=== PATIENT | female | born 1975 | race Caucasian/White ===

== ENCOUNTER 2017-12-07 21:07 | Emergency (ER) | payer OTHER, SELFPAY ==
[2017-12-07 21:15] VITALS: BP 152/96; PULSE 93; RESP 16; TEMP 37; O2SAT 100; BMI 22.3
== END 2017-12-07 22:50 | disposition left against medical advice (07) ==
LOC: ED 21:39
DX: H53.9 Unspecified visual disturbance (principal)
CPT/HCPCS: 99281; 99282

== ENCOUNTER 2018-05-23 19:44 | Emergency (ER) | payer OTHER, SELFPAY ==
[2018-05-23 19:50] VITALS: BP 155/91; PULSE 104; RESP 15; TEMP 37.4; O2SAT 100; BMI 22.3
[2018-05-23 20:18] LABS: Bacteria Urine Few (2-10); Culture Indicated Urine Cult Not Indicated; RBC Urine 10-30/HPF (0-5/HPF); Squamous Epithelial Cell Urine None Seen; WBC Urine 0-1/HPF (0-5/HPF)
[2018-05-23] MEDS: KETOROLAC 60 MG/2 ML VIAL 30 MG IV (20:48)
--- NOTE | 2018-05-23 20:51 | ED.ABDPAIN ---
HPI - Abdominal Pain <Mary Nathan PA-C - Last Filed: 05/24/18 12:05> General Chief Complaint: Abdominal Pain Stated Complaint: Abd/flank pain R side Time Seen by Provider: 05/23/18 20:17 Source: patient Mode of arrival: ambulatory Limitations: no limitations History of Present Illness HPI narrative: This generally healthy 42-year-old female comes to ED due to right flank pain abrupt onset this afternoon. She states that she was in [place] this week for vacation and feeling fine until she developed crampy and stabbing pain in her right flank area. She states that she had some nausea on the flight home but no vomiting. Not feeling nauseated now. She states that she has felt warm but does not think she had a fever. She states that she does not have dysuria. She has not had hematuria. She states this pain is not quite like her previous kidney stone 6 years ago but location is similar. She states that she has history of chronic bladder spasm but that has been well controlled and this does not feel similar. She does not feel like the pain is in her abdomen or pelvis. She denies any diarrhea. No recent illness or known exposures. She notes that she has a history of chronic tachycardia, resting heart rate averages about 109. She has had previous cardiology workup for this and found to be benign Related Data Previous Rx's Medication Instructions Recorded oxycodone-acetaminophen [Percocet] 1 tab PO Q4-6H PRN #8 tab 05/23/18 tamsulosin 0.4 mg PO DAILY #5 cap 05/23/18 Review of Systems <Mary Nathan PA-C - Last Filed: 05/24/18 12:05> Review of Systems ROS Unobtainable: All systems reviewed & are unremarkable except as noted in HPI and below PFSH <Mary Nathan PA-C - Last Filed: 05/24/18 12:05> Medical History Chronic nonspecific cystitis (Chronic) Ovarian cyst (Chronic) Recurrent UTI (Chronic) Tachycardia (Chronic) History of kidney stones (Resolved) Surgical History History of tonsillectomy (Resolved) Family History Father Kidney stones Social History Smoking Status: Never smoker Family History Father Kidney stones Social History Smoking Status: Never smoker Exam <Mary Nathan PA-C - Last Filed: 05/24/18 12:05> Narrative Exam Narrative: GENERAL APPEARANCE: Patient sitting comfortably, in no distress. HEENT: PERRL, EOMI, no scleral icterus NECK: Supple LUNGS: Clear to auscultation bilaterally. HEART: Rate and rhythm regular, rapid, normal S1 and S2, no S3 or S4. ABDOMEN: Soft, nondistended, bowel sounds present x 4 quadrants, no masses palpable, no hepatosplenomegaly. No CVAT, but there is localized tenderness inferior to this along the right lateral flank without guarding or rebound EXTREMITIES: No edema, no cyanosis DERMATOLOGIC: No jaundice or exanthem NEUROLOGIC: Alert and oriented with normal speech and coordination Initial Vital Signs Initial Vital Signs: Vital Signs Temperature 99.3 F 05/23/18 19:50 Pulse Rate 104 H 05/23/18 19:50 Respiratory Rate 15 05/23/18 19:50 Blood Pressure 155/91 H 05/23/18 19:50 Pulse Oximetry 100 05/23/18 19:50 <Danita Garrett DO - Last Filed: 05/26/18 07:45> Initial Vital Signs Initial Vital Signs: Vital Signs Temperature 99.3 F 05/23/18 19:50 Pulse Rate 104 H 05/23/18 19:50 Respiratory Rate 15 05/23/18 19:50 Blood Pressure 155/91 H 05/23/18 19:50 Pulse Oximetry 100 05/23/18 19:50 Course <Mary Nathan PA-C - Last Filed: 05/24/18 12:05> Orders Ordered: Discontinued Medications Sodium Chloride (Normal Saline 0.9%) 1,000 mls @ 1,000 mls/hr IV BOLUS ONE Stop: 05/23/18 22:02 Last Infusion: 05/23/18 22:45 Dose: 0 mls/hr Admin: 05/23/18 21:34 Dose: 1,000 mls/hr Ketorolac Tromethamine (Toradol) 30 mg IV NOW ONE Stop: 05/23/18 20:18 Last Admin: 05/23/18 20:48 Dose: 30 mg Ondansetron HCl (Zofran Odt Prepack) 1 bottle MISC SEEINSTR ONE Stop: 05/23/18 23:00 Last Admin: 05/23/18 23:19 Dose: 1 bottle Oxycodone/Acetaminophen (Endocet 5/325 Prepack) 1 bottle MISC SEEINSTR ONE Stop: 05/23/18 23:00 Last Admin: 05/23/18 23:19 Dose: 1 bottle Tamsulosin HCl (Flomax) 0.4 mg PO NOW ONE Stop: 05/23/18 22:54 Last Admin: 05/23/18 23:19 Dose: 0.4 mg Vital Signs - 8 hr 05/23/18 19:50 05/23/18 22:23 Temperature 99.3 F Pulse Rate 104 H 98 H Respiratory Rate 15 15 Blood Pressure 155/91 H Blood Pressure [Right Arm] 132/80 Pulse Oximetry 100 100 <Danita Garrett DO - Last Filed: 05/26/18 07:45> Orders Ordered: Discontinued Medications Sodium Chloride (Normal Saline 0.9%) 1,000 mls @ 1,000 mls/hr IV BOLUS ONE Stop: 05/23/18 22:02 Last Infusion: 05/23/18 22:45 Dose: 0 mls/hr Admin: 05/23/18 21:34 Dose: 1,000 mls/hr Ketorolac Tromethamine (Toradol) 30 mg IV NOW ONE Stop: 05/23/18 20:18 Last Admin: 05/23/18 20:48 Dose: 30 mg Ondansetron HCl (Zofran Odt Prepack) 1 bottle MISC SEEINSTR ONE Stop: 05/23/18 23:00 Last Admin: 05/23/18 23:19 Dose: 1 bottle Oxycodone/Acetaminophen (Endocet 5/325 Prepack) 1 bottle MISC SEEINSTR ONE Stop: 05/23/18 23:00 Last Admin: 05/23/18 23:19 Dose: 1 bottle Tamsulosin HCl (Flomax) 0.4 mg PO NOW ONE Stop: 05/23/18 22:54 Last Admin: 05/23/18 23:19 Dose: 0.4 mg Vital Signs - 8 hr 05/23/18 19:50 05/23/18 22:23 Temperature 99.3 F Pulse Rate 104 H 98 H Respiratory Rate 15 15 Blood Pressure 155/91 H Blood Pressure [Right Arm] 132/80 Pulse Oximetry 100 100 MDM - Abdominal Pain <Mary Nathan PA-C - Last Filed: 05/24/18 12:05> Lab Data Attestation: I reviewed the patient's lab results. Result diagrams: 05/23/18 21:30 05/23/18 21:30 Lab Results 05/23/18 05/23/18 05/23/18 Range/Units 20:06 21:30 21:30 WBC 9.2 (4.5-11.0) X10^3/uL RBC 4.81 (4.0-5.2) X10^6/uL Hgb 14.3 (12.0-16.0) g/dL Hct 42.2 (36-46) % MCV 87.8 (80-100) fL MCH 29.8 (26-34) PG MCHC 33.9 (30-36) % RDW 13.5 (11.6-14.8) % Plt Count 325 (150-400) X10^3/uL Neut % (Auto) 84.4 H (50-75) % Lymph % (Auto) 11.2 L (25-40) % [place] % (Auto) 3.7 (3-14) % Eos % (Auto) 0.3 L (2-4) % Baso % (Auto) 0.4 (0-2) % Neut # (Auto) 7800 H (1252-9427) /uL Lymph # (Auto) 1000 L (5831-3903) /uL [place] # (Auto) 300 (0-900) /uL Eos # (Auto) 0 (0-450) /uL Baso # (Auto) 0 (0-100) /uL Sodium 138 (137-145) mmol/L Potassium 3.9 (3.4-5.1) mmol/L Chloride 104 (98-107) mmol/L Carbon Dioxide 20 L (22-32) mmol/L BUN 12 (7-17) mg/dL Creatinine 0.70 (0.52-1.04) mg/dL Estimated GFR > 60.0 (>60) mL/min BUN/Creatinine Ratio 17.1 (6-22) Glucose 106 H (70-100) mg/dL Calcium 9.0 (8.4-10.2) mg/dL Total Bilirubin 0.6 (0.2-1.3) mg/dL AST 22 (14-36) IU/L ALT 21 (9-52) IU/L Alkaline Phosphatase 50 (38-126) U/L Total Protein 7.7 (6.3-8.2) g/dL Albumin 4.3 (3.5-5.0) g/dL Globulin 3.4 (1.7-4.1) g/dL Albumin/Globulin Ratio 1.3 (1.0-2.8) Lipase 41 (23-300) U/L Urine RBC 10-30/hpf H (0-5/HPF) Urine WBC 0-1/hpf (0-5/HPF) Ur Squamous Epith Cells None seen Urine Bacteria Few (2-10) H (None) Ur Culture Indicated? Cult not indicated Point of care testing: Point of Care Testing Test Results Negative Urine Dip Bedside Urine Glucose Negative Bedside Urine Bilirubin - Negative Bedside Urine Ketone +/- 5 Urine Specific [place] 1.025 Bedside Urine Occult Blood +++ Bedside Urine pH 6.0 Bedside Urine Protein - Negative Bedside Urine Urobilinogen - Negative Bedside Urine Nitrite - Negative Bedside Urine Leukocytes - Negative Esterase Imaging Data CT scan - abdomen: Radiologist's impression: [place] [address] CT Scan Report Signed Patient: ANNALEE GALO RMR#: [id number] : 1975Acct:[id number] Age/Sex: 42 / FDate of Service: 05/23/18 Loc: ED Accession Number: [id number] Procedure: CT kidney ureter bladder (KUB) Ordering Provider: Mary Nathan P.A-C PROCEDURE: CT KIDNEY URETER BLADDER (KUB) INDICATIONS: Right flank pain, h/o stone TECHNIQUE: Noncontrast 5 mm thick sections acquired from the diaphragms to the symphysis. 5 mm thick coronal and sagittal reformats were then performed. For radiation dose reduction, the following was used: automated exposure control, adjustment of mA and/or kV according to patient size. COMPARISON: None. FINDINGS: Image quality: Excellent. Lung bases: Lung bases are clear. Heart size is normal. Urinary system: Both kidneys are normal in size. There is a 4 mm obstructing nephrolith at the right ureteropelvic junction resulting in mild right hydronephrosis. There is surrounding periureteral edema. Other solid organs: Liver is normal in size. Gallbladder is unremarkable. Pancreas is normal in contours. Spleen is normal in size. No adrenal nodules. Peritoneum and bowel: Unenhanced bowel loops demonstrate normal wall thickness and caliber. No free fluid or air. Large stool burden throughout the colon. Appendix cannot be definitely identified on this exam, but there are no right lower quadrant inflammatory findings to suggest acute appendicitis. Nodes and vessels: No retroperitoneal or mesenteric adenopathy by size criteria. Aorta and inferior vena cava are normal in caliber. Abdominal wall: No ventral hernias. Pelvis: No free pelvic fluid. No inguinal hernias or adenopathy. Bones: Mild multilevel degenerative changes of the spine. IMPRESSION: 4 mm obstructing nephrolith at the right ureteropelvic junction resulting in mild right hydronephrosis. Dictated by: Carlos A Orourke M.D. on 05/23/2018 at 22:35 Approved by: Carlos A Orourke M.D. on 05/23/2018 at 22:43 <Danita Garrett DO - Last Filed: 05/26/18 07:45> Lab Data Lab Results 05/23/18 05/23/18 05/23/18 Range/Units 20:06 21:30 21:30 WBC 9.2 (4.5-11.0) X10^3/uL RBC 4.81 (4.0-5.2) X10^6/uL Hgb 14.3 (12.0-16.0) g/dL Hct 42.2 (36-46) % MCV 87.8 (80-100) fL MCH 29.8 (26-34) PG MCHC 33.9 (30-36) % RDW 13.5 (11.6-14.8) % Plt Count 325 (150-400) X10^3/uL Neut % (Auto) 84.4 H (50-75) % Lymph % (Auto) 11.2 L (25-40) % [place] % (Auto) 3.7 (3-14) % Eos % (Auto) 0.3 L (2-4) % Baso % (Auto) 0.4 (0-2) % Neut # (Auto) 7800 H (7260-5230) /uL Lymph # (Auto) 1000 L (5217-1341) /uL [place] # (Auto) 300 (0-900) /uL Eos # (Auto) 0 (0-450) /uL Baso # (Auto) 0 (0-100) /uL Sodium 138 (137-145) mmol/L Potassium 3.9 (3.4-5.1) mmol/L Chloride 104 (98-107) mmol/L Carbon Dioxide 20 L (22-32) mmol/L BUN 12 (7-17) mg/dL Creatinine 0.70 (0.52-1.04) mg/dL Estimated GFR > 60.0 (>60) mL/min BUN/Creatinine Ratio 17.1 (6-22) Glucose 106 H (70-100) mg/dL Calcium 9.0 (8.4-10.2) mg/dL Total Bilirubin 0.6 (0.2-1.3) mg/dL AST 22 (14-36) IU/L ALT 21 (9-52) IU/L Alkaline Phosphatase 50 (38-126) U/L Total Protein 7.7 (6.3-8.2) g/dL Albumin 4.3 (3.5-5.0) g/dL Globulin 3.4 (1.7-4.1) g/dL Albumin/Globulin Ratio 1.3 (1.0-2.8) Lipase 41 (23-300) U/L Urine RBC 10-30/hpf H (0-5/HPF) Urine WBC 0-1/hpf (0-5/HPF) Ur Squamous Epith Cells None seen Urine Bacteria Few (2-10) H (None) Ur Culture Indicated? Cult not indicated Point of care testing: Point of Care Testing Test Results Negative Urine Dip Bedside Urine Glucose Negative Bedside Urine Bilirubin - Negative Bedside Urine Ketone +/- 5 Urine Specific [place] 1.025 Bedside Urine Occult Blood +++ Bedside Urine pH 6.0 Bedside Urine Protein - Negative Bedside Urine Urobilinogen - Negative Bedside Urine Nitrite - Negative Bedside Urine Leukocytes - Negative Esterase Discharge Plan Departure Patient Disposition: Home Clinical Impression: Calculus of kidney Discharge Date/Time: 05/23/18 23:28 Interventions: ED Discharge Assessment Last Done: 05/23/18 23:26 Instructions: DI for Kidney Stones Activity Restrictions/Additional Instructions: Your pain appears to be due to a kidney stone in the right kidney that is at the junction of the ureter and pelvis. This is small enough that it should pass on its own, however you should call your PCP 1st thing in the morning to arrange follow-up tomorrow or Sunday. Please return if you have any acutely worsening symptoms again, or new symptoms such as vomiting or fever. Take the tamsulosin tomorrow night and once daily for the next few days until the stone passes. Take [id number] ibuprofen 800 mg every 8 hr or Aleve 2 tablets every 12 hr to help with pain and inflammation. You can take the Percocet in addition to this if needed, but do not drive as this could make you sleepy. You also have Zofran (Odansetron) as needed for nausea, so please take this prior to your other medicines if you are finding that you have any nausea. If you are not feeling better, you may need a referral to a local urologist. [place], I would recommend either Dr. Mulligan or Rafiq at [facility] Prescriptions: New oxycodone-acetaminophen [Percocet] 5-325 mg tablet 1 tab PO Q4-6H PRN (Reason: acute kidney stone pain) Qty: 8 RF: 0 tamsulosin 0.4 mg capsule 0.4 mg PO DAILY Qty: 5 RF: 0 Referrals: [facility] [Outside] <Danita Garrett DO - Last Filed: 05/26/18 07:45> [facility] Attending Julitoature Attestation: I was immediately available in the department for consultation. Documentation has been reviewed. I agree with assessment and plan.
--- NOTE | 2018-05-23 21:03 | DI.CT.S_ITS ---
PROCEDURE: CT KIDNEY URETER BLADDER (KUB) INDICATIONS: Right flank pain, h/o stone TECHNIQUE: Noncontrast 5 mm thick sections acquired from the diaphragms to the symphysis. 5 mm thick coronal and sagittal reformats were then performed. For radiation dose reduction, the following was used: automated exposure control, adjustment of mA and/or kV according to patient size. COMPARISON: None. FINDINGS: Image quality: Excellent. Lung bases: Lung bases are clear. Heart size is normal. Urinary system: Both kidneys are normal in size. There is a 4 mm obstructing nephrolith at the right ureteropelvic junction resulting in mild right hydronephrosis. There is surrounding periureteral edema. Other solid organs: Liver is normal in size. Gallbladder is unremarkable. Pancreas is normal in contours. Spleen is normal in size. No adrenal nodules. Peritoneum and bowel: Unenhanced bowel loops demonstrate normal wall thickness and caliber. No free fluid or air. Large stool burden throughout the colon. Appendix cannot be definitely identified on this exam, but there are no right lower quadrant inflammatory findings to suggest acute appendicitis. Nodes and vessels: No retroperitoneal or mesenteric adenopathy by size criteria. Aorta and inferior vena cava are normal in caliber. Abdominal wall: No ventral hernias. Pelvis: No free pelvic fluid. No inguinal hernias or adenopathy. Bones: Mild multilevel degenerative changes of the spine. IMPRESSION: 4 mm obstructing nephrolith at the right ureteropelvic junction resulting in mild right hydronephrosis. Dictated by: Carlos A Orourke M.D. on 05/23/2018 at 22:35 Approved by: Carlos A Orourke M.D. on 05/23/2018 at 22:43
--- NOTE | 2018-05-23 21:09 | ED_ITS ---
HPI - Abdominal Pain <Mary Nathan PA-C - Last Filed: 05/24/18 12:05> General Chief Complaint: Abdominal Pain Stated Complaint: Abd/flank pain R side Time Seen by Provider: 05/23/18 20:17 Source: patient Mode of arrival: ambulatory Limitations: no limitations History of Present Illness HPI narrative: This generally healthy 42-year-old female comes to ED due to right flank pain abrupt onset this afternoon. She states that she was in [place] this week for vacation and feeling fine until she developed crampy and stabbing pain in her right flank area. She states that she had some nausea on the flight home but no vomiting. Not feeling nauseated now. She states that she has felt warm but does not think she had a fever. She states that she does not have dysuria. She has not had hematuria. She states this pain is not quite like her previous kidney stone 6 years ago but location is similar. She states that she has history of chronic bladder spasm but that has been well c ontrolled and this does not feel similar. She does not feel like the pain is in her abdomen or pelvis. She denies any diarrhea. No recent illness or known exposures. She notes that she has a history of chronic tachycardia, resting heart rate averages about 109. She has had previous cardiology workup for this and found to be benign Related Data Previous Rx's Medication Instructions Recorded oxycodone-acetaminophen [Percocet] 1 tab PO Q4-6H PRN #8 tab 05/23/18 tamsulosin 0.4 mg PO DAILY #5 cap 05/23/18 Review of Systems <Mary Nathan PA-C - Last Filed: 05/24/18 12:05> Review of Systems ROS Unobtainable: All systems reviewed & are unremarkable except as noted in HPI and below PFSH <Mary Nathan PA-C - Last Filed: 05/24/18 12:05> Medical History Chronic nonspecific cystitis (Chronic) Ovarian cyst (Chronic) Recurrent UTI (Chronic) Tachycardia (Chronic) History of kidney stones (Resolved) Surgical History History of tonsillectomy (Resolved) Family History Father Kidney stones Social History Smoking Status: Never smoker Family History Father Kidney stones Social History Smoking Status: Never smoker Exam <Mary Nathan PA-C - Last Filed: 05/24/18 12:05> Narrative Exam Narrative: GENERAL APPEARANCE: Patient sitting comfortably, in no distress. HEENT: PERRL, EOMI, no scleral icterus NECK: Supple LUNGS: Clear to auscultation bilaterally. HEART: Rate and rhythm regular, rapid, normal S1 and S2, no S3 or S4. ABDOMEN: Soft, nondistended, bowel sounds present x 4 quadrants, no masses palpable, no hepatosplenomegaly. No CVAT, but there is localized tenderness inferior to this along the right lateral flank without guarding or rebound EXTREMITIES: No edema, no cyanosis DERMATOLOGIC: No jaundice or exanthem NEUROLOGIC: Alert and oriented with normal speech and coordination Initial Vital Signs Initial Vital Signs: Vital Signs Temperature 99.3 F 05/23/18 19:50 Pulse Rate 104 H 05/23/18 19:50 Respiratory Rate 15 05/23/18 19:50 Blood Pressure 155/91 H 05/23/18 19:50 Pulse Oximetry 100 05/23/18 19:50 <Danita Garrett DO - Last Filed: 05/26/18 07:45> Initial Vital Signs Initial Vital Signs: Vital Signs Temperature 99.3 F 05/23/18 19:50 Pulse Rate 104 H 05/23/18 19:50 Respiratory Rate 15 05/23/18 19:50 Blood Pressure 155/91 H 05/23/18 19:50 Pulse Oximetry 100 05/23/18 19:50 Course <Mary Nathan PA-C - Last Filed: 05/24/18 12:05> Orders Ordered: Discontinued Medications Sodium Chloride (Normal Saline 0.9%) 1,000 mls @ 1,000 mls/hr IV BOLUS ONE Stop: 05/23/18 22:02 Last Infusion: 05/23/18 22:45 Dose: 0 mls/hr Admin: 05/23/18 21:34 Dose: 1,000 mls/hr Ketorolac Tromethamine (Toradol) 30 mg IV NOW ONE Stop: 05/23/18 20:18 Last Admin: 05/23/18 20:48 Dose: 30 mg Ondansetron HCl (Zofran Odt Prepack) 1 bottle MISC SEEINSTR ONE Stop: 05/23/18 23:00 Last Admin: 05/23/18 23:19 Dose: 1 bottle Oxycodone/Acetaminophen (Endocet 5/325 Prepack) 1 bottle MISC SEEINSTR ONE Stop: 05/23/18 23:00 Last Admin: 05/23/18 23:19 Dose: 1 bottle Tamsulosin HCl (Flomax) 0.4 mg PO NOW ONE Stop: 05/23/18 22:54 Last Admin: 05/23/18 23:19 Dose: 0.4 mg Vital Signs - 8 hr 05/23/18 19:50 05/23/18 22:23 Temperature 99.3 F Pulse Rate 104 H 98 H Respiratory Rate 15 15 Blood Pressure 155/91 H Blood Pressure [Right Arm] 132/80 Pulse Oximetry 100 100 <Danita Garrett DO - Last Filed: 05/26/18 07:45> Orders Ordered: Discontinued Medications Sodium Chloride (Normal Saline 0.9%) 1,000 mls @ 1,000 mls/hr IV BOLUS ONE Stop: 05/23/18 22:02 Last Infusion: 05/23/18 22:45 Dose: 0 mls/hr Admin: 05/23/18 21:34 Dose: 1,000 mls/hr Ketorolac Tromethamine (Toradol) 30 mg IV NOW ONE Stop: 05/23/18 20:18 Last Admin: 05/23/18 20:48 Dose: 30 mg Ondansetron HCl (Zofran Odt Prepack) 1 bottle MISC SEEINSTR ONE Stop: 05/23/18 23:00 Last Admin: 05/23/18 23:19 Dose: 1 bottle Oxycodone/Acetaminophen (Endocet 5/325 Prepack) 1 bottle MISC SEEINSTR ONE Stop: 05/23/18 23:00 Last Admin: 05/23/18 23:19 Dose: 1 bottle Tamsulosin HCl (Flomax) 0.4 mg PO NOW ONE Stop: 05/23/18 22:54 Last Admin: 05/23/18 23:19 Dose: 0.4 mg Vital Signs - 8 hr 05/23/18 19:50 05/23/18 22:23 Temperature 99.3 F Pulse Rate 104 H 98 H Respiratory Rate 15 15 Blood Pressure 155/91 H Blood Pressure [Right Arm] 132/80 Pulse Oximetry 100 100 MDM - Abdominal Pain <Mary Nathan PA-C - Last Filed: 05/24/18 12:05> Lab Data Attestation: I reviewed the patient's lab results. Result diagrams: 05/23/18 21:30 05/23/18 21:30 Lab Results 05/23/18 05/23/18 05/23/18 Range/Units 20:06 21:30 21:30 WBC 9.2 (4.5-11.0) X10^3/uL RBC 4.81 (4.0-5.2) X10^6/uL Hgb 14.3 (12.0-16.0) g/dL Hct 42.2 (36-46) % MCV 87.8 (80-100) fL MCH 29.8 (26-34) PG MCHC 33.9 (30-36) % RDW 13.5 (11.6-14.8) % Plt Count 325 (150-400) X10^3/uL Neut % (Auto) 84.4 H (50-75) % Lymph % (Auto) 11.2 L (25-40) % Platte % (Auto) 3.7 (3-14) % Eos % (Auto) 0.3 L (2-4) % Baso % (Auto) 0.4 (0-2) % Neut # (Auto) 7800 H (7336-1670) /uL Lymph # (Auto) 1000 L (9436-0717) /uL Platte # (Auto) 300 (0-900) /uL Eos # (Auto) 0 (0-450) /uL Baso # (Auto) 0 (0-100) /uL Sodium 138 (137-145) mmol/L Potassium 3.9 (3.4-5.1) mmol/L Chloride 104 (98-107) mmol/L Carbon Dioxide 20 L (22-32) mmol/L BUN 12 (7-17) mg/dL Creatinine 0.70 (0.52-1.04) mg/dL Estimated GFR > 60.0 (>60) mL/min BUN/Creatinine Ratio 17.1 (6-22) Glucose 106 H (70-100) mg/dL Calcium 9.0 (8.4-10.2) mg/dL Total Bilirubin 0.6 (0.2-1.3) mg/dL AST 22 (14-36) IU/L ALT 21 (9-52) IU/L Alkaline Phosphatase 50 (38-126) U/L Total Protein 7.7 (6.3-8.2) g/dL Albumin 4.3 (3.5-5.0) g/dL Globulin 3.4 (1.7-4.1) g/dL Albumin/Globulin Ratio 1.3 (1.0-2.8) Lipase 41 (23-300) U/L Urine RBC 10-30/hpf H (0-5/HPF) Urine WBC 0-1/hpf (0-5/HPF) Ur Squamous Epith Cells None seen Urine Bacteria Few (2-10) H (None) Ur Culture Indicated? Cult not indicated Point of care testing: Point of Care Testing Test Results Negative Urine Dip Bedside Urine Glucose Negative Bedside Urine Bilirubin - Negative Bedside Urine Ketone +/- 5 Urine Specific [place] 1.025 Bedside Urine Occult Blood +++ Bedside Urine pH 6.0 Bedside Urine Protein - Negative Bedside Urine Urobilinogen - Negative Bedside Urine Nitrite - Negative Bedside Urine Leukocytes - Negative Esterase Imaging Data CT scan - abdomen: Radiologist's impression: [place] [address] CT Scan Report Signed Patient: ANNALEE GALO RMR#: [id number] : 1975Acct:[id number] Age/Sex: 42 / FDate of Service: 05/23/18 Loc: ED Accession Number: [id number] Procedure: CT kidney ureter bladder (KUB) Ordering Provider: Mary Nathan P.A-C PROCEDURE: CT KIDNEY URETER BLADDER (KUB) INDICATIONS: Right flank pain, h/o stone TECHNIQUE: Noncontrast 5 mm thick sections acquired from the diaphragms to the symphysis. 5 mm thick coronal and sagittal reformats were then performed. For radiation dose reduction, the following was used: automated exposure control, adjustment of mA and/or kV according to patient size. COMPARISON: None. FINDINGS: Image quality: Excellent. Lung bases: Lung bases are clear. Heart size is normal. Urinary system: Both kidneys are normal in size. There is a 4 mm obstructing nephrolith at the right ureteropelvic junction resulting in mild right hydronephrosis. There is surrounding periureteral edema. Other solid organs: Liver is normal in size. Gallbladder is unremarkable. Pancreas is normal in contours. Spleen is normal in size. No adrenal nodules. Peritoneum and bowel: Unenhanced bowel loops demonstrate normal wall thickness and caliber. No free fluid or air. Large stool burden throughout the colon. Appendix cannot be definitely identified on this exam, but there are no right lower quadrant inflammatory findings to suggest acute appendicitis. Nodes and vessels: No retroperitoneal or mesenteric adenopathy by size criteria. Aorta and inferior vena cava are normal in caliber. Abdominal wall: No ventral hernias. Pelvis: No free pelvic fluid. No inguinal hernias or adenopathy. Bones: Mild multilevel degenerative changes of the spine. IMPRESSION: 4 mm obstructing nephrolith at the right ureteropelvic junction resulting in mild right hydronephrosis. Dictated by: Carlos A Orourke M.D. on 05/23/2018 at 22:35 Approved by: Carlos A Orourke M.D. on 05/23/2018 at 22:43 <Danita Garrett DO - Last Filed: 05/26/18 07:45> Lab Data Lab Results 05/23/18 05/23/18 05/23/18 Range/Units 20:06 21:30 21:30 WBC 9.2 (4.5-11.0) X10^3/uL RBC 4.81 (4.0-5.2) X10^6/uL Hgb 14.3 (12.0-16.0) g/dL Hct 42.2 (36-46) % MCV 87.8 (80-100) fL MCH 29.8 (26-34) PG MCHC 33.9 (30-36) % RDW 13.5 (11.6-14.8) % Plt Count 325 (150-400) X10^3/uL Neut % (Auto) 84.4 H (50-75) % Lymph % (Auto) 11.2 L (25-40) % Platte % (Auto) 3.7 (3-14) % Eos % (Auto) 0.3 L (2-4) % Baso % (Auto) 0.4 (0-2) % Neut # (Auto) 7800 H (5632-3528) /uL Lymph # (Auto) 1000 L (0046-8330) /uL Platte # (Auto) 300 (0-900) /uL Eos # (Auto) 0 (0-450) /uL Baso # (Auto) 0 (0-100) /uL Sodium 138 (137-145) mmol/L Potassium 3.9 (3.4-5.1) mmol/L Chloride 104 (98-107) mmol/L Carbon Dioxide 20 L (22-32) mmol/L BUN 12 (7-17) mg/dL Creatinine 0.70 (0.52-1.04) mg/dL Estimated GFR > 60.0 (>60) mL/min BUN/Creatinine Ratio 17.1 (6-22) Glucose 106 H (70-100) mg/dL Calcium 9.0 (8.4-10.2) mg/dL Total Bilirubin 0.6 (0.2-1.3) mg/dL AST 22 (14-36) IU/L ALT 21 (9-52) IU/L Alkaline Phosphatase 50 (38-126) U/L Total Protein 7.7 (6.3-8.2) g/dL Albumin 4.3 (3.5-5.0) g/dL Globulin 3.4 (1.7-4.1) g/dL Albumin/Globulin Ratio 1.3 (1.0-2.8) Lipase 41 (23-300) U/L Urine RBC 10-30/hpf H (0-5/HPF) Urine WBC 0-1/hpf (0-5/HPF) Ur Squamous Epith Cells None seen Urine Bacteria Few (2-10) H (None) Ur Culture Indicated? Cult not indicated Point of care testing: Point of Care Testing Test Results Negative Urine Dip Bedside Urine Glucose Negative Bedside Urine Bilirubin - Negative Bedside Urine Ketone +/- 5 Urine Specific [place] 1.025 Bedside Urine Occult Blood +++ Bedside Urine pH 6.0 Bedside Urine Protein - Negative Bedside Urine Urobilinogen - Negative Bedside Urine Nitrite - Negative Bedside Urine Leukocytes - Negative Esterase Discharge Plan Departure Patient Disposition: Home Clinical Impression: Calculus of kidney Discharge Date/Time: 05/23/18 23:28 Interventions: ED Discharge Assessment Last Done: 05/23/18 23:26 Instructions: DI for Kidney Stones Activity Restrictions/Additional Instructions: Your pain appears to be due to a kidney stone in the right kidney that is at the junction of the ureter and pelvis. This is small enough that it should pass on its own, however you should call your PCP 1st thing in the morning to arrange follow-up tomorrow or Sunday. Please return if you have any acutely worsening symptoms again, or new symptoms such as vomiting or fever. Take the tamsulosin tomorrow night and once daily for the next few days until the stone passes. Take [id number] ibuprofen 800 mg every 8 hr or Aleve 2 tablets every 12 hr to help with pain and inflammation. You can take the Percocet in addition to this if needed, but do not drive as this could make you sleepy. You also have Zofran (Odansetron) as needed for nausea, so please take this prior to your other medicines if you are finding that you have any nausea. If you are not feeling better, you may need a referral to a local urologist. If [place] anyone that [place] base has on [place], I would recommend either Dr. Mulligan or Rafiq at [facility] Prescriptions: New oxycodone-acetaminophen [Percocet] 5-325 mg tablet 1 tab PO Q4-6H PRN (Reason: acute kidney stone pain) Qty: 8 RF: 0 tamsulosin 0.4 mg capsule 0.4 mg PO DAILY Qty: 5 RF: 0 Referrals: [facility] [Outside] <Danita Garrett DO - Last Filed: 05/26/18 07:45> [facility] ED Attending Abhishek Attestation: I was immediately available in the department for consultation. Documentation has been reviewed. I agree with assessment and plan.
[2018-05-23] MEDS: SODIUM CHLORIDE 0.9% 1,000 ML 1000 ML IV (21:34)
[2018-05-23 21:49] LABS: Add Manual Diff / Slide Review NO; Basophils Absolute Auto 0 /uL (0-100); Basophils Percent Auto 0.4 % (0-2); Eosinophils Absolute Auto 0 /uL (0-450); Eosinophils Percent Auto 0.3 % (2-4); Hematocrit 42.2 % (36-46); Hemoglobin 14.3 g/dL (12.0-16.0); Lymphocytes Absolute Auto 1000 /uL (1100-4500); Lymphocytes Percent Auto 11.2 % (25-40); Mean Corpuscular HGB Conc 33.9 % (30-36); Mean Corpuscular Hemoglobin 29.8 PG (26-34); Mean Corpuscular Volume 87.8 fL (80-100); Monocytes Absolute Auto 300 /uL (0-900); Monocytes Percent Auto 3.7 % (3-14); Neutrophils Absolute Auto 7800 /uL (1500-7000); Neutrophils Percent Auto 84.4 % (50-75); Platelet Count 325 X10^3/uL (150-400); Red Blood Cell Count 4.81 X10^6/uL (4.0-5.2); Red Cell Distribution Width 13.5 % (11.6-14.8); White Blood Cell Count 9.2 X10^3/uL (4.5-11.0)
[2018-05-23 21:53] LABS: Alanine Aminotransferase 21 IU/L (9-52); Albumin 4.3 g/dL (3.5-5.0); Albumin Globulin Ratio 1.3 (1.0-2.8); Alkaline Phosphatase 50 U/L (38-126); Aspartate Aminotransferase 22 IU/L (14-36); BUN Creatinine Ratio 17.1 (6-22); Bilirubin Total 0.6 mg/dL (0.2-1.3); Blood Urea Nitrogen 12 mg/dL (7-17); Carbon Dioxide 20 mmol/L (22-32); Chloride 104 mmol/L (98-107); Estimated Glomerular Filt Rate > 60.0 mL/min (>60); Globulin 3.4 g/dL (1.7-4.1); Glucose 106 mg/dL (70-100); HEMOLYSIS 41 (0-50); Lipase 41 U/L (23-300); Potassium 3.9 mmol/L (3.4-5.1); Sodium 138 mmol/L (137-145); Total Protein 7.7 g/dL (6.3-8.2)
[2018-05-23 22:23] VITALS: BP 132/80; PULSE 98; RESP 15; O2SAT 100
[2018-05-23 23:13] VITALS: BP 135/82; PULSE 96; RESP 17; O2SAT 98
[2018-05-23] MEDS: ONDANSETRON 4 MG ODT PREPACK 1 BOTTLE MISC (23:19)
[2018-05-23] MEDS: OXYCODONE/APAP 5/325 PREPACK 1 BOTTLE MISC (23:19)
[2018-05-23] MEDS: TAMSULOSIN 0.4 MG CAPSULE PO (23:19)
== END 2018-05-23 23:28 | disposition home or self-care (01) ==
PROVIDERS: Emergency Medicine; Emergency Provider Internal Medicine
DX: N20.0 Calculus of kidney (principal)
CPT/HCPCS: 74176; 80053; 81003; 81015; 81025; 83690; 85025; 96361; 96374; 99283; 99284; J1885

== ENCOUNTER → 2018-06-14 11:02 | Outpatient (CLI) | payer OTHER, SELFPAY ==
--- NOTE | 2018-06-14 | DI.MRI.S_ITS ---
PROCEDURE: MR HEAD/BRAIN WO/W CON INDICATIONS: OTHER SYMPTOMS AND SIGNS INVOLVING THE NERVOUS SYS TECHNIQUE: Noncontrast axial T1 spin echo, axial T2 fast spin echo, sagittal and axial FLAIR, coronal T2 fast spin echo, axial gradient echo, axial diffusion and ADC through the brain. After the administration of contrast, axial and coronal 3D VIBE or T1 spin echo with fat saturation through the brain. COMPARISON: None. FINDINGS: Image quality: Excellent. CSF Spaces: Basal cisterns are patent. No extra-axial fluid collections. Ventricles are normal in size and shape. Brain: No midline shift. No intracranial bleeds or masses. No abnormal intracranial enhancement. The brainstem appears normal. Diffusion-weighted images demonstrate no acute ischemic insults. No chronic ischemic insults. Normal intravascular flow voids are present. Skull and face: Calvarial marrow is normal in signal. Orbits appear normal. Sinuses: Sinuses and mastoids appear clear. IMPRESSION: 1. No acute intracranial process. Dictated by: Lauren Dumont M.D. on 06/14/2018 at 13:48 Approved by: Lauren Dumont M.D. on 06/14/2018 at 14:01
== END ==
PROVIDERS: PCP Nurse Practitioner Family; Visit Provider Nurse Practitioner Family
DX: R29.818 Other symptoms and signs involving the nervous system (principal)
CPT/HCPCS: 70553; A9579

== ENCOUNTER → 2019-01-27 07:59 | Outpatient (CLI) | payer OTHER, SELFPAY ==
--- NOTE | 2019-01-27 | DI.ECHO.S_ITS ---
[place] +---------+ [facility] +---------+ : : [address] : : : : [id number] : : : : Phone: [phone]+ Echocardiogram Report + + :Name: ANNALEE GALO Study Date: 01/27/2019 Height: 64 in : :[facility] Weight: 138 lb : : Gender: Female BSA: 1.7 m2 : :: 1975 Age: 43 yrs BP: 138/80 mmHg: :Reason For Study: Palpitations : : Performed By: Katrin Tijerina : :Referring: MELANIE YEN : + + Interpretation Summary There is mild to moderate global hypokinesis of the left ventricle. Left ventricular systolic function is mild to moderately reduced. Left ventricular ejection fraction is estimated to be 39% by biplane MOD. The RV function is normal by visual estimation. The right ventricle is normal size. Pulmonary artery pressures cannot be estimated because of the lack of a measurable TR jet velocity but the IVC suggests a CVP of around 3 mmHg. No hemodynamically significant valvular abnormalities. No prior echo for comparison. Procedure: A two-dimensional transthoracic echocardiogram with color flow and Doppler was performed. The study quality was technically adequate. There is no prior echocardiogram noted for this patient. The heart rate ranged between 98-123 bpm during the study. Left Ventricle: The left ventricle is normal in size. There is normal left ventricular wall thickness. The ejection fraction is estimated to be 35-40%. Left ventricular ejection fraction is estimated to be 39% by biplane MOD. Left ventricular systolic function is mild to moderately reduced. There is mild to moderate global hypokinesis of the left ventricle. Diastolic parameters suggest probable normal left ventricular diastolic function and normal filling pressures. Right Ventricle: The right ventricle is normal size. The RV function is normal by visual estimation. Atria: The left atrial size is normal. Right atrial size is normal. There is no Doppler evidence for an interatrial shunt. Mitral Valve: The mitral valve is grossly normal. There is trace mitral regurgitation. Aortic Valve: The aortic valve is trileaflet. The aortic valve opens well. There is no aortic valve stenosis. No aortic regurgitation is present. Tricuspid Valve: The tricuspid valve is normal in structure and function. No tricuspid regurgitation. Pulmonary artery pressures cannot be estimated because of the lack of a measurable TR jet velocity but the IVC suggests a CVP of around 3 mmHg. Pulmonic Valve: The pulmonic valve is not well seen, but is grossly normal. There is no pulmonic valvular regurgitation. Great Vessels: The aortic root is normal size. The dimensions of the ascending aorta are normal. The aortic arch is normal in size. The IVC is of normal diameter and collapses greater than 50% with a sniff. This suggests a low right atrial pressure of 3 mm Hg. Pericardium/ Pleura There is no pericardial effusion. There is no pleural effusion. MMode/2D Measurements & Calculations LVIDd: 5.4 cm Ao root diam: 3.1 cm LVIDs: 4.4 cm Aortic Jxn: 2.7 cm FS: 19.2 % asc Aorta Diam: 2.8 cm EPSS: 1.2 cm Ao Arch Diam (Prox Trans): 2.4 cm IVSd: 0.96 cm LVPWd: 0.74 cm LV ohara. diameter/BSA (cm/m^2): 3.2 LV sys. diameter/BSA (cm/m^2): 2.6 LA dimension: 3.1 cm RA long axis: 3.8 cm LA A2 area: 16.9 cm2 RA area: 11.5 cm2 LA A4 area: 15.4 cm2 RA vol: 29.3 ml LA length (vol): 4.7 cm RA : 17.6 ml/m2 LA vol: 46.9 ml IVC diam: 1.5 cm LA vol index: 28.1 ml/m2 RVDd major: 5.3 cm RVD1 (basal): 2.7 cm LVAd ap4: 30.6 cm2 RVD2 (mid): 2.1 cm LVAs ap4: 26.8 cm2 LVLs ap4: 7.3 cm LVAd ap2: 37.0 cm2 LVLd ap2: 8.7 cm LVAs ap2: 26.9 cm2 LVLs ap2: 7.7 cm Doppler Measurements & Calculations Ao V2 max: 161.9 cm/sec MV E max brandyn: 67.1 cm/sec Ao V2 mean: 112.7 cm/sec MV A max brandyn: 65.3 cm/sec Ao max P.5 mmHg MV E/A: 1.0 Ao mean P.6 mmHg Med Peak E' Brandyn: 8.3 cm/sec Ao V2 VTI: 29.4 cm E/E' med: 8.1 Lat Peak E' Brandyn: 12.7 cm/sec E/E' lat: 5.3 E/e' average: 6.7 MV dec time: 0.22 sec MV P1/2t: 62.8 msec PA V2 max: 89.1 cm/sec MV P1/2t max brandyn: 65.8 cm/sec PA V2 mean: 61.5 cm/sec MVA(P1/2t): 3.5 cm2 PA mean P.7 mmHg PA Accel Time: 0.13 sec Electronically signed by: Law Rosa M.D. on Reading Physician:01/27/2019 11:25 AM
== END ==
PROVIDERS: Visit Provider Internal Medicine Cardiovascular Disease
DX: R00.0 Tachycardia, unspecified (principal); R00.2 Palpitations
CPT/HCPCS: 93306

== ENCOUNTER → 2019-04-10 16:07 | Outpatient (CLI) | payer OTHER, SELFPAY ==
--- NOTE | 2019-04-10 | DI.MG.S_ITS ---
BILATERAL DIGITAL SCREENING MAMMOGRAM 3D/2D WITH CAD: 04/10/2019 CLINICAL: Routine screening. Family history of breast cancer. Comparison is made to exam dated: 12/21/2017 mammogram - [facility]. The tissue of both breasts is extremely dense, which lowers the sensitivity of mammography. Current study was also evaluated with a Computer Aided Detection (CAD) system. No significant masses, calcifications, or other findings are seen in either breast. There has been no significant interval change. IMPRESSION: NEGATIVE There is no mammographic evidence of malignancy. A 1 year screening mammogram is recommended. This exam was interpreted at Station ID: [id number]. NOTE: For mammograms, a report in lay terms will be sent to the patient. Approximately 15% of breast malignancies will not be visualized mammographically. In the management of a palpable breast mass, a negative mammogram must not discourage biopsy of a clinically suspicious lesion. Electronically Signed By: Montserrat manuel/lauren:04/11/2019 12:41:24 letter sent: Normal Exam ACR BI-RADS Category 1: Negative [id number]
== END ==
PROVIDERS: Visit Provider Internal Medicine Cardiovascular Disease
DX: Z12.31 Encounter for screening mammogram for malignant neoplasm of breast (principal); Z80.3 Family history of malignant neoplasm of breast
CPT/HCPCS: 77063; 77067

== ENCOUNTER → 2019-05-14 15:44 | Outpatient (CLI) | payer OTHER, SELFPAY ==
--- NOTE | 2019-05-14 | DI.ECHO.S_ITS ---
[place] +---------+ Hospital +---------+ : : [address] : : : : [id number] : : : : Phone: [phone]+ Echocardiogram Report + + :Name: ANNALEE GALO Study Date: 05/14/2019 Height: 64 in : :[facility] Weight: 138 lb : : Gender: Female BSA: 1.7 m2 : :: 1975 Age: 43 yrs BP: 110/68 mmHg: :Reason For Study: TACHYCARDIA : : Performed By: LRF : :Referring: Guillaume Morgan : + + Interpretation Summary Normal sinus rhythm. Normal LV size and wall thickness. There is global hypokinesis. EF is estimated at 30-35% EPSS is 1.1 cm consistent with cardiomyopathy. No significant valvular abnormalities. Compared to prior study 01/27/2019 LV is less dynamic. Procedure: A two-dimensional transthoracic echocardiogram with color flow and Doppler was performed. The study quality was technically adequate. Comparison is made with the echocardiogram of 01/27/2019. The patient was in normal sinus rhythm during the exam. Left Ventricle: The left ventricle is normal in size. There is normal left ventricular wall thickness. Left ventricular systolic function is moderately reduced. The ejection fraction is estimated to be 30-35%. There is mild to moderate global hypokinesis of the left ventricle. Diastolic parameters suggest a relaxation abnormality of the left ventricle, consistent with probable normal filling pressures. Right Ventricle: The right ventricle is normal in size and function. Atria: Both atria are normal in size. There is no Doppler evidence for an interatrial shunt. Mitral Valve: The mitral valve is normal in structure and function. There is mild mitral regurgitation. There are multiple regurgitant jets present. Aortic Valve: The aortic valve is trileaflet. The aortic valve opens well. No aortic regurgitation is present. Tricuspid Valve: The tricuspid valve is normal in structure and function. There is mild tricuspid regurgitation. Pulmonary artery pressures cannot be estimated because of the lack of a measurable TR jet velocity. Pulmonic Valve: The pulmonic valve is not well seen, but is grossly normal. There is no pulmonic valvular regurgitation. Great Vessels: The aortic root is normal size. The ascending aorta could not be visualized. The IVC is of normal diameter and collapses greater than 50% with a sniff. This suggests a low right atrial pressure of 3 mm Hg. Pericardium/ Pleura There is no pericardial effusion. MMode/2D Measurements & Calculations LVIDd: 5.4 cm LVOT diam: 2.1 cm LVIDs: 4.5 cm Ao root diam: 2.7 cm FS: 15.7 % Aortic Jxn: 2.3 cm EPSS: 1.1 cm Ao Arch Diam (Prox Trans): 2.0 cm IVSd: 0.63 cm LVPWd: 0.70 cm LV ohara. diameter/BSA (cm/m^2): 3.2 LV sys. diameter/BSA (cm/m^2): 2.7 LA A2 area: 15.7 cm2 RA long axis: 4.1 cm LA A4 area: 16.4 cm2 RA area: 13.3 cm2 LA length (vol): 4.4 cm RA vol: 36.7 ml LA vol: 49.0 ml RA : 22.0 ml/m2 LA vol index: 29.3 ml/m2 IVC diam: 1.7 cm RVD1 (basal): 2.7 cm RVD2 (mid): 2.1 cm TAPSE: 2.0 cm Doppler Measurements & Calculations Ao V2 max: 139.5 cm/sec LVOT Max Brandyn: 63.9 cm/sec Ao V2 mean: 89.2 cm/sec LV V1 max P.6 mmHg Ao max P.8 mmHg LV V1 VTI: 11.0 cm Ao mean P.7 mmHg BRIANA(I,D): 1.5 cm2 Ao V2 VTI: 25.2 cm BRIANA(V,D): 1.6 cm2 sev ratio: 0.44 BRIANA indexed to BSA (cm^2/m^2): 0.91 MV E max brandyn: 80.4 cm/sec MV P1/2t max brandyn: 80.0 cm/sec MV A max brandyn: 59.3 cm/sec MVA(P1/2t): 4.3 cm2 MV E/A: 1.4 Med Peak E' Brandyn: 10.5 cm/sec E/E' med: 7.6 Lat Peak E' Brandyn: 10.5 cm/sec E/E' lat: 7.7 E/e' average: 7.7 MV dec time: 0.17 sec MV P1/2t: 50.6 msec SV(LVOT): 38.2 ml Electronically signed by: Ximena Alvarado M.D. on Reading Physician:05/14/2019 05:24 PM
== END ==
PROVIDERS: PCP Family Medicine; Referring Provider Physician Assistant; Visit Provider Physician Assistant
DX: I08.1 Rheumatic disorders of both mitral and tricuspid valves (principal); R00.0 Tachycardia, unspecified; R00.2 Palpitations
CPT/HCPCS: 93306

== ENCOUNTER → 2019-10-27 07:29 | Outpatient (CLI) | payer OTHER, SELFPAY ==
[2019-10-27 08:02] LABS: Add Manual Diff / Slide Review NO; Basophils Absolute Auto 0 /uL (0-100); Basophils Percent Auto 0.9 % (0-2); Eosinophils Absolute Auto 200 /uL (0-450); Eosinophils Percent Auto 4.4 % (2-4); Hematocrit 43.6 % (36-46); Hemoglobin 14.3 g/dL (12.0-16.0); Lymphocytes Absolute Auto 1400 /uL (1100-4500); Lymphocytes Percent Auto 26.6 % (25-40); Mean Corpuscular HGB Conc 32.9 % (30-36); Mean Corpuscular Hemoglobin 29.4 PG (26-34); Mean Corpuscular Volume 89.2 fL (80-100); Monocytes Absolute Auto 500 /uL (0-900); Monocytes Percent Auto 9.7 % (3-14); Neutrophils Absolute Auto 3200 /uL (1500-7000); Neutrophils Percent Auto 58.4 % (50-75); Platelet Count 274 X10^3/uL (150-400); Red Blood Cell Count 4.88 X10^6/uL (4.0-5.2); Red Cell Distribution Width 13.4 % (11.6-14.8); White Blood Cell Count 5.4 X10^3/uL (4.5-11.0)
[2019-10-27 08:18] LABS: BUN Creatinine Ratio 19.5 (6-22); Blood Urea Nitrogen 15 mg/dL (7-17); Calcium 9.6 mg/dL (8.4-10.2); Carbon Dioxide 29 mmol/L (22-32); Chloride 104 mmol/L (98-107); Cholesterol 184 mg/dL (140-199); Estimated Glomerular Filt Rate > 60.0 mL/min (>60); Glucose 98 mg/dL (70-100); HDL Cholesterol 53 mg/dL (40-60); HEMOLYSIS < 15 (0-50); LDL Cholesterol Calculated 107 mg/dL (<100); Potassium 4.4 mmol/L (3.4-5.1); Sodium 139 mmol/L (137-145); Triglycerides 120 mg/dL (35-150)
== END ==
PROVIDERS: PCP Family Medicine; Referring Provider Internal Medicine Interventional Cardiology; Visit Provider Internal Medicine Interventional Cardiology
DX: R94.39 Abnormal result of other cardiovascular function study (principal)
CPT/HCPCS: 36415; 80048; 80061; 85025

== ENCOUNTER → 2020-04-13 17:03 | Outpatient (CLI) | payer OTHER, SELFPAY ==
--- NOTE | 2020-04-13 17:04 | DI.MG.S_ITS ---
BILATERAL DIGITAL SCREENING MAMMOGRAM 3D/2D WITH CAD: 04/13/2020 CLINICAL: Routine screening. Family history of breast cancer. Comparison is made to exams dated: 04/10/2019 mammogram - [facility] and 12/21/2017 mammogram - [facility]. The tissue of both breasts is extremely dense, which lowers the sensitivity of mammography. Current study was also evaluated with a Computer Aided Detection (CAD) system. There is a possible developing 0.8 cm oval equal density asymmetry in the right breast posterior depth central to the nipple seen on the craniocaudal view only. No other significant masses, calcifications, or other findings are seen in either breast. IMPRESSION: INCOMPLETE: NEEDS ADDITIONAL IMAGING EVALUATION The possible developing 0.8 cm oval equal density asymmetry in the right breast is indeterminate. Additional views with possible ultrasound are recommended. This exam was interpreted at Station ID: [id number]. NOTE: For mammograms, a report in lay terms will be sent to the patient. Approximately 15% of breast malignancies will not be visualized mammographically. In the management of a palpable breast mass, a negative mammogram must not discourage biopsy of a clinically suspicious lesion. Electronically Signed By: Angel shaver/lauren:04/13/2020 17:43:56 letter sent: Additional Imaging Needed ACR BI-RADS Category 0: Incomplete [id number]
== END ==
PROVIDERS: PCP Family Medicine; Referring Provider Family Medicine; Visit Provider Family Medicine
DX: Z12.31 Encounter for screening mammogram for malignant neoplasm of breast (principal); Z80.3 Family history of malignant neoplasm of breast
CPT/HCPCS: 77063; 77067

== ENCOUNTER → 2020-04-26 09:09 | Outpatient (CLI) | payer OTHER, SELFPAY ==
--- NOTE | 2020-04-26 | DI.ECHO.S_ITS ---
[facility] +---------+ : : [address] : : : : [id number] : : : : Phone: [phone]+ Echocardiogram Report + + :Name: ANNALEE GALO Study Date: 04/26/2020 Height: 64 in : :[facility] ReadingLocation: Weight: 135 lb : : Gender: Female BSA: 1.7 m2 : :: 1975 Age: 44 yrs BP: 119/86 mmHg: :Reason For Study: ventricular premature depolarization : :Ordering Physician: Koko YENformed By: Cyndie Herron : :Referring: MELANIE YEN : + + Interpretation Summary Limited study. Normal left ventricle size with ejection fraction 50-55%. Left ventricular global longitudinal strain average is -18.0%. Comparison is made with the echocardiogram of 05/14/2019, LV function has improved. Procedure: A two-dimensional transthoracic echocardiogram with color flow and Doppler was performed in limited views only to assess Ejection fraction and wall motion.. Comparison is made with the echocardiogram of 05/14/2019. The patient was in sinus rhythm with heart rates between 76-84 bpm during the exam. Left Ventricle: The left ventricle is normal in size and wall thickness. The ejection fraction is estimated to be 50-55%. Left ventricular global longitudinal strain average is -18.0%. Right Ventricle: The right ventricle is normal in size and function. Atria: Both atria are normal in size. Great Vessels: The IVC is of normal diameter and collapses greater than 50% with a sniff. This suggests a low right atrial pressure of 3 mm Hg. Pericardium/ Pleura There is no pericardial effusion. There is no pleural effusion. MMode/2D Measurements & Calculations LVIDd: 4.8 cm LA A2 area: 14.9 cm2 LVIDs: 4.0 cm LA A4 area: 9.0 cm2 FS: 16.7 % LA length (vol): 3.1 cm IVSd: 0.94 cm LA vol: 36.6 ml LVPWd: 0.72 cm LA vol index: 22.1 ml/m2 LV ohara. diameter/BSA (cm/m^2): 2.9 LV sys. diameter/BSA (cm/m^2): 2.4 RA long axis: 3.5 cm RVD1 (basal): 2.5 cm RA area: 9.7 cm2 TAPSE: 2.0 cm RA vol: 23.3 ml RA : 14.1 ml/m2 IVC diam: 1.1 cm Electronically signed by: Rhonda Merchant on Reading Physician:04/26/2020 04:12 PM
== END ==
PROVIDERS: PCP Family Medicine; Referring Provider Internal Medicine Cardiovascular Disease; Visit Provider Internal Medicine Cardiovascular Disease
DX: I49.3 Ventricular premature depolarization (principal); I51.9 Heart disease, unspecified
CPT/HCPCS: 93307

== ENCOUNTER 2020-11-07 11:50 | Emergency (ER) | payer OTHER, SELFPAY ==
[2020-11-07 12:08] VITALS: BP 134/72; PULSE 97; RESP 18; TEMP 36.8; O2SAT 100; BMI 24.0
--- NOTE | 2020-11-07 13:30 | ED.BACK ---
HPI - Back Pain/Injury General Chief Complaint: Back Pain/Injury Stated Complaint: Sciatic pain for a few days. Hard to stand Time Seen by Provider: 11/07/20 13:29 Source: patient Mode of arrival: Ambulatory Limitations: no limitations History of Present Illness HPI Narrative: This is a 45-year-old female comes emergency department complaint of right-sided low back buttock pain radiating down her anterior magdaleno. Patient states symptoms have been there for several days. They started with just lower back buttock discomfort and today became significantly worse. Patient states standing and ambulating worsen her symptoms, laying flat or sitting provides some relief. She tried ibuprofen 800 mg this morning with minimal improvement. Patient denies any numbness, tingling or weakness. She does have increased pain with lifting her leg. She did see a chiropractor about a week ago but did not have any symptoms immediately afterwards. She has not had any other trauma or injuries noted. She was seeing her chiropractor for her neck at that time. Patient has a history of low ejection fraction after having chronic tachycardia. It was noted on her Q 5 year checked that her ejection fraction was low. She was started on metoprolol and continues to viral with Cardiology and it has since improved. Patient does note that she has been on steroids in the past and did not tolerate these well. Related Data Previous Rx's Medication Instructions Recorded oxycodone-acetaminophen 5 mg-325 1 tab PO Q4-6H PRN #8 tab 05/23/18 mg tablet (Percocet) tamsulosin 0.4 mg capsule 0.4 mg PO DAILY #5 cap 05/23/18 diazepam 10 mg tablet (Valium) 10 mg PO TID PRN #14 tab 11/07/20 Allergies Allergy/AdvReac Type Severity Reaction Status Date / Time No Known Drug Allergies Allergy Verified 11/07/20 13:54 Review of Systems Review of Systems ROS Unobtainable: All systems reviewed & are unremarkable except as noted in HPI and below Patient History Medical History Chronic nonspecific cystitis History of kidney stones Ovarian cyst Recurrent UTI Tachycardia Surgical History History of tonsillectomy Family History (Updated 05/23/18 @ 21:08 by Mary Nathan PA-C) Father Kidney stones Social History Smoking Status: Never smoker Smoking Status: Never smoker alcohol intake frequency: holidays/special occasions only Substance Use Type: does not use Exam Narrative Exam Narrative: GENERAL: Alert and oriented x three, female in mild distress HEENT: Head normocephalic, atraumatic, EOMI, pupils reactive, face symmetric, moist mucous membranes NECK: Supple, full range of motion CARDIOVASCULAR: Regular rate and rhythm without murmurs, rubs or gallops. RESPIRATORY: Breath sounds equal bilaterally, no wheezes rales or rhonchi. ABDOMEN: Soft, nontender. Normoactive bowel sounds all 4 quadrants. No guarding or rebound, rigidity, no mass : No CVA tenderness BACK: No cervical, thoracic or lumbar vertebral point tenderness. Patient has normal range of motion. Rectal exam is deferred. No saddle anesthesia. Muscle strength is 5/5 in lower extremities, DTRs are 2/4 and lower extremities. Tibialis pulses are 2+ and lower extremities. Sensation is intact in the lower extremities. Patient has increased discomfort with right straight leg raise. Not increased with the left. EXTREMITIES: Normal range of motion, no clubbing or edema. Neurovascularly intact NEUROLOGICAL: Cranial nerves II through XII grossly intact. Moving all extremities SKIN: Warm, dry, no petechiae, no rashes or lesions. Initial Vital Signs Initial Vital Signs: Vital Signs Temperature 98.2 F 11/07/20 12:08 Pulse Rate 97 H 11/07/20 12:08 Respiratory Rate 18 11/07/20 12:08 Blood Pressure 134/72 11/07/20 12:08 Pulse Oximetry 100 11/07/20 12:08 Course Orders Ordered: Discontinued Medications Ketorolac Tromethamine (Ketorolac 30 Mg/Ml Vial) 30 mg IM NOW ONE Stop: 11/07/20 13:45 Last Admin: 11/07/20 13:54 Dose: 30 mg Documented by: MERARI Vital Signs Vital signs: Vital Signs - 8 hr 11/07/20 12:08 11/07/20 14:01 Temperature 98.2 F Pulse Rate 97 H 72 Respiratory Rate 18 15 Blood Pressure 134/72 Pulse Oximetry 100 99 MDM - Back Pain/Injury MDM Narrative Medical decision making narrative: 45-year-old female with sciatica type pain for the past several days. Patient has not had significant symptoms in the past. Exam is reassuring and patient does not have any red flag symptoms. Patient was given a dose of Toradol. She is not tolerate steroids well in the past to plan to give a short course of muscle relaxer as well as continuing with ibuprofen as needed and follow up with primary care. Red flag symptoms were discussed as well as return precautions and patient expresses her understanding and feels comfortable with the plan. Discharge Plan Departure Patient Disposition: Home Clinical Impression: Sciatica Instructions: DI for Sciatica Activity Restrictions/Additional Instructions: Follow-up with your physician in the next week for recheck. Call for an appointment. You may continue with ibuprofen up to 800 mg every 8 hours as needed for pain. You may take muscle relaxer 1 tablet every 8 hours as needed. Use warm moist heat to the affected area. Prescription sent to [facility] in [place]. Please return for fevers, new weakness, numbness or loss of sensation, loss of bowel or bladder control, if you are unable to lift or move your leg color changes to your lower extremity such as pallor or new discoloration or other new or concerning symptoms. Prescriptions: New diazepam [Valium] 10 mg tablet 10 mg PO TID PRN (Reason: muscle spasm) Qty: 14 RF: 0 No Action oxycodone-acetaminophen [Percocet] 5-325 mg tablet 1 tab PO Q4-6H PRN (Reason: acute kidney stone pain) Qty: 8 RF: 0 tamsulosin 0.4 mg capsule 0.4 mg PO DAILY Qty: 5 RF: 0 Referrals: Federica Wood [Primary Care Provider] -
[2020-11-07] MEDS: KETOROLAC 30 MG/ML VIAL IM (13:54)
[2020-11-07 14:01] VITALS: PULSE 72; RESP 15; O2SAT 99
== END 2020-11-07 14:03 | disposition home or self-care (01) ==
PROVIDERS: Emergency Provider Emergency Medicine; PCP Family Medicine
DX: M54.31 Sciatica, right side (principal)
CPT/HCPCS: 96372; 99283; J1885

== ENCOUNTER 2021-02-10 14:30 | Outpatient (RCR) | payer OTHER, SELFPAY ==
--- NOTE | 2021-01-11 16:45 | PT.OIE ---
Current Diagnoses Pain in right elbow (01/11/21) Past Medical History (Last Reviewed 11/07/20 @ 13:51 by Kourtney Rojas DO) Chronic nonspecific cystitis History of kidney stones History of tonsillectomy Ovarian cyst Recurrent UTI Tachycardia Past Surgical History (Last Reviewed 11/07/20 @ 13:51 by Kourtney Rojas DO) History of tonsillectomy Visit Care Team Role Provider Type Jhon Viramontes MD Attending Provider Non-Staff Family Provider Primary Care Provider Referring Provider Specialty: Medical Address: [address] [place] [address], [facility] Email: Physical Therapy Initial Evaluation PT-OP-A Visit Information Start: 01/11/21 16:24 Freq: Status: Active Protocol: Document 01/11/21 16:24 HH (Rec: 01/11/21 16:44 [email or web address]) Out-Patient Physical Therapy Visit Information Visit Information Visit Type Initial Evaluation Visit Start Time 14:30 Visit Stop Time 15:15 Total Visit Minutes 45 Visit Number 1/12 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 She fell couple years ago on her R elbow once and developed lateral epicondylitis. She did have PT and her symptoms resolved. However, she started having same problem since this summer with no known injury. Holding a weighted object, tighting the jar and lifting tend to increase her pain 4/10. She also has discomfort while sleeping. Denies tingling, numbness and weakness. 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 PT-OP-C Subjective Start: 01/11/21 16:24 Freq: Status: Active Protocol: Document 01/11/21 16:24 HH (Rec: 01/11/21 16:44 [email or web address]) Patient Questionnaires Quick Dash- Upper Extremity Quick Dash UE Score 15.9 Quick Dash UE Impairment 1 to 19% Impaired (Score 1-19) OP-PT Pain Assessment Location R elbow Pain Location Details lateral epicondyle Intensity 4 Scale Used Numeric (0 - 10) Description Aching Frequency Frequent Pain Aggravating Factors Exercise,Lifting Pain Alleviating Factors Inactivity PT-OP-F Manual Assessment Start: 01/11/21 16:24 Freq: Status: Active Protocol: Document 01/11/21 16:24 (Rec: 01/11/21 16:44 [email or web address]) Manual Assessments Soft Tissue Assessment Soft Tissue Mobility Assessment mod hypertonicity at common tendon for wrist extensors and flexors PT-OP-K Range of Motion Start: 01/11/21 16:24 Freq: Status: Active Protocol: Document 01/11/21 16:24 (Rec: 01/11/21 16:44 [email or web address]) Elbow/Forearm Range of Motion Elbow/Forearm Right Active Elbow/Forearm ROM WFL Yes Left Active Elbow/Forearm ROM WFL Yes Wrist Goniometric Range of Motion Wrist Right Wrist ROM WFL Yes Flexion Active (degrees) 65 Extension Active (degrees) 72 Left Wrist ROM WFL Yes Flexion Active (degrees) 75 Extension Active (degrees) 76 ROM Limitations Comments pain with end range stretching for R wrist exntension and flexion PT-OP-L Special Tests Start: 01/11/21 16:24 Freq: Status: Active Protocol: Document 01/11/21 16:24 (Rec: 01/11/21 16:44 [email or web address]) Special Tests Wrist/Hand Special Tests Lateral Epicondylitis Extended Test Results +VE Lateral Epicondylitis Flexed Test Results +VE PT-OP-M Strength Start: 01/11/21 16:24 Freq: Status: Active Protocol: Document 01/11/21 16:24 (Rec: 01/11/21 16:44 [email or web address]) Elbow/Forearm Strength Elbow and Forearm Manual Muscle Testing Right Flexion (C6) 4+ Good+ Extension (C7) 4+ Good+ Pronation 4+ Good+ Supination 4+ Good+ Left Flexion (C6) 4+ Good+ Extension (C7) 4+ Good+ Pronation 4+ Good+ Supination 4+ Good+ Hand Marketing Database Analyst/Pinch Strength Hand Dominance Hand Dominance Right Hand Strength Right Marketing Database Analyst (lbs) 67.3 Comments pain with exertion Left Marketing Database Analyst (lbs) 62.5 PT-OP-Q Treatments Start: 01/11/21 16:24 Freq: Status: Active Protocol: Document 01/11/21 16:24 (Rec: 01/11/21 16:44 [email or web address]) Therapeutic Exercises Sitting Exercises wrist pron/sup Sitting Exercise Name with hammer, concentric and eccentric Side bilateral Equipment Used hammer Reps/Minutes 15 x 2 Comments for HEP wrist stretches Sitting Exercise Name for extensors and flexors Side bilateral Reps/Minutes 15s x 5 Comments for hEP PT-OP-T Assessment and Plan Start: 01/11/21 16:24 Freq: Status: Active Protocol: Document 01/11/21 16:24 HH (Rec: 01/11/21 16:44 [email or web address]) Physical Therapy Assessment Rehab Potential Rehabilitation Potential Excellent Evaluation Complexity Number of Personal Factors/Comorbidities 0 Number of Body Systems Impaired 1-2 Clinical Presentation at Evaluation Stable Impairments Impairments Activity Tolerance,Functional Activities,Functional Mobility ,Pain,ROM,Soft Tissue Mobility ,Strength Goals HEP Impairment pt does not ahve HEP Short Term Goal (STG) pt will comply to daily HEP to improve her wrist ROm and strength STG Duration 4 weeks pain Impairment elbow pain 4/10 Short Term Goal (STG) pt will have no more elbow pain while holding a weighted object like a filled cup STG Duration 3 weeks [facility] Goal (LTG) pt will have no more elbow pain while working at the food handler department LTG Duration 6 weeks quickdash Impairment pt scores 15.9 on quickdash Short Term Goal (STG) pt will be able to score <10 on quickdash to show improve UE strength and mobility STG Duration 3 weeks [facility] Goal (LTG) pt will be able to score <5 on quickdash to show no difficulty for ADLs LTG Duration 6 weeks Assessment Summary Assessment Lesley is a 45yo female here for R lateral elbow pain. Upon assessment, pt presents signs of lateral epicodylitis. 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 She has pain mostly lifting weighted object . Provided wrist stretches followed by pronation and supination strengthening ex. I expect pt will back to PLOF within a month through skilled therapy. Physical Therapy Plan Frequency and Duration Frequency of Treatment Every Other Week Duration of Treatment 6 weeks Plan of Care Start Date 01/11/21 Plan of Care End Date 02/25/21 Therapeutic Interventions Therapeutic Interventions Home Exercise Program,Joint Mobilizations,Manual Therapy, Patient/Caregiver Education, Self-Care/Home Management,Soft Tissue Mobilization,Taping, Therapeutic Activities, Therapeutic Exercises Modalities Cold Pack/Ice Massage,Electric Stimulation,Hot Packs, Iontophoresis Next Visit Focus/Plan Next Note Type Treatment Note Next Visit Plan progressive strengthening pronatino, twisting motin
--- NOTE | 2021-01-11 16:45 | PT.OPPOC ---
Physical, Occupational & Speech Therapy At [facility] Current Diagnoses Pain in right elbow (01/11/21) Visit Care Team Role Provider Type Jhon Viramontes MD Attending Provider Non-Staff Family Provider Primary Care Provider Referring Provider Specialty: Medical Address: [address] [place] [address], [id number] Email: Plan Of Care PT-OP-T Assessment and Plan Start: 01/11/21 16:24 Freq: Status: Active Protocol: Document 01/11/21 16:24 HH (Rec: 01/11/21 16:44 [email or web address]) Physical Therapy Assessment Rehab Potential Rehabilitation Potential Excellent Evaluation Complexity Number of Personal Factors/Comorbidities 0 Number of Body Systems Impaired 1-2 Clinical Presentation at Evaluation Stable Impairments Impairments Activity Tolerance,Functional Activities,Functional Mobility ,Pain,ROM,Soft Tissue Mobility ,Strength Goals HEP Impairment pt does not ahve HEP Short Term Goal (STG) pt will comply to daily HEP to improve her wrist ROm and strength STG Duration 4 weeks pain Impairment elbow pain 4/10 Short Term Goal (STG) pt will have no more elbow pain while holding a weighted object like a filled cup STG Duration 3 weeks Production Lead Goal (LTG) 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 Upon assessment, pt presents signs of lateral epicodylitis. 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 She has pain mostly lifting weighted object . Provided wrist stretches followed by pronation and supination strengthening ex. I expect pt will back to PLOF within a month through skilled therapy. Physical Therapy Plan Frequency and Duration Frequency of Treatment Every Other Week Duration of Treatment 6 weeks Plan of Care Start Date 01/11/21 Plan of Care End Date 02/25/21 Therapeutic Interventions Therapeutic Interventions Home Exercise Program,Joint Mobilizations,Manual Therapy, Patient/Caregiver Education, Self-Care/Home Management,Soft Tissue Mobilization,Taping, Therapeutic Activities, Therapeutic Exercises Modalities Cold Pack/Ice Massage,Electric Stimulation,Hot Packs, Iontophoresis Next Visit Focus/Plan Next Note Type Treatment Note Next Visit Plan progressive strengthening pronatino, twisting motin Plan of Care Dates Plan of Care Start Date 01/11/21 Plan of Care End Date 02/25/21 Electronically Signed by: Renee Elkins, PT 01/11/21 [id number] Please Sign and Return: I have reviewed this Plan of Care and certify that the skilled therapy services above are required to meet the patient?s needs. Physician Signature Date Printed Name and Credentials Clinical Instructor Signature Printed Name and Credentials
--- NOTE | 2021-02-10 15:14 | PT.OTN ---
Current Diagnoses Pain in right elbow (02/10/21) Physical Therapy Treatment Note PT-OP-A Visit Information Start: 01/11/21 16:24 Freq: Status: Active Protocol: Document 02/10/21 14:33 HH (Rec: 02/10/21 15:14 [id number]) Out-Patient Physical Therapy Visit Information Visit Information Visit Type Treatment Note Visit Start Time 14:30 Visit Stop Time 15:15 Total Visit Minutes 45 Visit Number 2/12 Number of UTILITY ARBORIST Visits 0 PT-OP-B Current Condition Start: 01/11/21 16:24 Freq: Status: Active Protocol: Document 01/11/21 16:24 HH (Rec: 01/11/21 16:44 [email or web address]) Current Condition History of Current Condition Onset Date this summer Current Complaints R elbow pain History of Current Condition Lesley is a 45 yo female here for her R elbow pain. She fell couple years ago on her R elbow once and developed lateral epicondylitis. She did have PT and her symptoms resolved. However, she started having same problem since this summer with no known injury. Holding a weighted object, tighting the jar and lifting tend to increase her pain 4/10. She also has discomfort while sleeping. Denies tingling, numbness and weakness. 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 PT-OP-C Subjective Start: 01/11/21 16:24 Freq: Status: Active Protocol: Document 02/10/21 14:33 HH (Rec: 02/10/21 15:14 [id number]) OP-PT Subjective Patient Comments Patient Comments My elbow is not bad somewhere like a 3/10. I only feel it when i lift an weighted object . I have done my stretching here and there but not so much with hammer. Patient Reported Progress Improving PT-OP-F Manual Assessment Start: 01/11/21 16:24 Freq: Status: Active Protocol: Document 01/11/21 16:24 HH (Rec: 01/11/21 16:44 HH [email or web address]) Manual Assessments Soft Tissue Assessment Soft Tissue Mobility Assessment mod hypertonicity at common tendon for wrist extensors and flexors PT-OP-K Range of Motion Start: 01/11/21 16:24 Freq: Status: Active Protocol: Document 01/11/21 16:24 HH (Rec: 01/11/21 16:44 [email or web address]) Elbow/Forearm Range of Motion Elbow/Forearm Right Active Elbow/Forearm ROM WFL Yes Left Active Elbow/Forearm ROM WFL Yes Wrist Goniometric Range of Motion Wrist Right Wrist ROM WFL Yes Flexion Active (degrees) 65 Extension Active (degrees) 72 Left Wrist ROM WFL Yes Flexion Active (degrees) 75 Extension Active (degrees) 76 ROM Limitations Comments pain with end range stretching for R wrist exntension and flexion PT-OP-L Special Tests Start: 01/11/21 16:24 Freq: Status: Active Protocol: Document 01/11/21 16:24 (Rec: 01/11/21 16:44 [email or web address]) Special Tests Wrist/Hand Special Tests Lateral Epicondylitis Extended Test Results +VE Lateral Epicondylitis Flexed Test Results +VE PT-OP-M Strength Start: 01/11/21 16:24 Freq: Status: Active Protocol: Document 01/11/21 16:24 (Rec: 01/11/21 16:44 [email or web address]) Elbow/Forearm Strength Elbow and Forearm Manual Muscle Testing Right Flexion (C6) 4+ Good+ Extension (C7) 4+ Good+ Pronation 4+ Good+ Supination 4+ Good+ Left Flexion (C6) 4+ Good+ Extension (C7) 4+ Good+ Pronation 4+ Good+ Supination 4+ Good+ Hand Motorcycle Sales Associate/Pinch Strength Hand Dominance Hand Dominance Right Hand Strength Right Motorcycle Sales Associate (lbs) 67.3 Comments pain with exertion Left Motorcycle Sales Associate (lbs) 62.5 PT-OP-Q Treatments Start: 01/11/21 16:24 Freq: Status: Active Protocol: Document 02/10/21 14:33 (Rec: 02/10/21 15:14 [id number]) Therapeutic Exercises Sitting Exercises wrist extension Equipment Used 3lbs DB Reps/Minutes 15 x2 Comments for HEP therabar Sitting Exercise Name with towel at home Reps/Minutes 15 x 3 wrist pron/sup Sitting Exercise Name with hammer, concentric and eccentric Side bilateral Equipment Used hammer Reps/Minutes 15 x 2 Comments for HEP wrist stretches Sitting Exercise Name for extensors and flexors Side bilateral Reps/Minutes 15s x 5 Comments for hEP Manual Therapy Treatment Soft Tissue Mobilization wrist extensors Body Location common tendon Mobilization Type Myofascial Release,Sustained Pressure,Trigger Point Release Intensity/Depth Deep Body Position Sitting PT-OP-T Assessment and Plan Start: 01/11/21 16:24 Freq: Status: Active Protocol: Document 02/10/21 14:33 (Rec: 02/10/21 15:14 [id number]) Physical Therapy Assessment Goals HEP Impairment pt does not ahve HEP Short Term Goal (STG) pt will comply to daily HEP to improve her wrist ROm and strength STG Duration 4 weeks pain Impairment elbow pain 4/10 Short Term Goal (STG) pt will have no more elbow pain while holding a weighted object like a filled cup STG Duration 3 weeks Business Intern Goal (LTG) pt will have no more elbow pain while working at the [employer] department LTG Duration 6 weeks quickdash Impairment pt scores 15.9 on quickdash Short Term Goal (STG) pt will be able to score <10 on quickdash to show improve UE strength and mobility STG Duration 3 weeks Mcfp Goal (LTG) pt will be able to score <5 on quickdash to show no difficulty for ADLs LTG Duration 6 weeks Assessment Summary Assessment pt reports some improvements for the past month but havent done much strengthening ex. She only has pain with resisted wrist extension. We went through a series of stretches and strengthening ex and she reports no pain with resisted wrist extension at the end. Will call and f/u with pt in a few weeks. Expect to DC Physical Therapy Plan Frequency and Duration Frequency of Treatment Every Other Week Duration of Treatment 6 weeks Plan of Care Start Date 01/11/21 Plan of Care End Date 02/25/21 Therapeutic Interventions Therapeutic Interventions Home Exercise Program,Joint Mobilizations,Manual Therapy, Patient/Caregiver Education, Self-Care/Home Management,Soft Tissue Mobilization,Taping, Therapeutic Activities, Therapeutic Exercises Modalities Cold Pack/Ice Massage,Electric Stimulation,Hot Packs, Iontophoresis Next Visit Focus/Plan Next Note Type Treatment Note Next Visit Plan progressive strengthening pronatino, twisting motin
== END 2021-05-10 09:33 ==
LOC: PHYS 14:30
PROVIDERS: Family Provider Family Medicine; PCP Family Medicine; Referring Provider Family Medicine; Visit Provider Family Medicine
DX: M25.521 Pain in right elbow (principal)
CPT/HCPCS: 97110; 97140; 97161

== ENCOUNTER → 2021-06-01 15:23 | Outpatient (CLI) | payer OTHER, SELFPAY ==
--- NOTE | 2021-06-01 | DI.MG.S_ITS ---
BILATERAL DIGITAL SCREENING MAMMOGRAM 3D/2D WITH CAD: 06/01/2021 CLINICAL: Routine screening. Comparison is made to exams dated: 04/28/2020 mammogram - [facility], 04/13/2020 mammogram, and 04/10/2019 mammogram - [facility]. The tissue of both breasts is extremely dense, which lowers the sensitivity of mammography. Current study was also evaluated with a Computer Aided Detection (CAD) system. No significant masses, calcifications, or other findings are seen in either breast. There has been no significant interval change. IMPRESSION: NEGATIVE There is no mammographic evidence of malignancy. A 1 year screening mammogram is recommended. This exam was interpreted at Station ID: [id number]. NOTE: For mammograms, a report in lay terms will be sent to the patient. Approximately 15% of breast malignancies will not be visualized mammographically. In the management of a palpable breast mass, a negative mammogram must not discourage biopsy of a clinically suspicious lesion. Electronically Signed By: Gideon Mcguire M.D., jr/lauren:06/01/2021 15:40:59 letter sent: Normal Exam ACR BI-RADS Category 1: Negative [id number]
== END ==
PROVIDERS: Family Provider Family Medicine; PCP Family Medicine; Referring Provider Family Medicine; Visit Provider Family Medicine
DX: Z12.31 Encounter for screening mammogram for malignant neoplasm of breast (principal)
CPT/HCPCS: 77063; 77067

== ENCOUNTER → 2022-04-21 11:57 | Outpatient (CLI) | payer OTHER, SELFPAY ==
--- NOTE | 2022-04-21 | DI.MG.S_ITS ---
BILATERAL DIGITAL DIAGNOSTIC MAMMOGRAM 3D/2D: 04/21/2022 CLINICAL: Right nipple itchinees. Comparison is made to exams dated: 06/01/2021 mammogram - [facility], 04/28/2020 ultrasound, 04/28/2020 mammogram - [facility], and 04/13/2020 mammogram - [facility]. Both breasts are extremely dense, which lowers the sensitivity of mammography (category d />75% glandular tissue). No significant masses, calcifications, or other findings are seen in either breast. There has been no significant interval change. IMPRESSION: NEGATIVE There is no mammographic evidence of malignancy. A 1 year screening mammogram is recommended. Based on Tyrer-Cuzick model (a risk assessment model), the patient's lifetime risk is 28.1% and her 10 year risk is 6.2%. If a patient has an elevated risk, a more comprehensive evaluation should be considered and/or a referral to a genetic counselor. The [place] [employer], [employer], and NCCN Guidelines advise the consideration of Breast MRI as an adjunct to screening mammography in patients whose Lifetime risk to develop breast cancer is 20% or higher. This exam was interpreted at Station ID: [id number]. NOTE: For mammograms, a report in lay terms will be sent to the patient. Approximately 15% of breast malignancies will not be visualized mammographically. In the management of a palpable breast mass, a negative mammogram must not discourage biopsy of a clinically suspicious lesion. Electronically Signed By: Gideon Mcguire M.D., jr/lauren:04/21/2022 14:09:15 letter sent: Normal Exam ACR BI-RADS Category 1: Negative [id number]
== END ==
PROVIDERS: Family Provider Family Medicine; PCP Family Medicine; Referring Provider Nurse Practitioner Family; Visit Provider Nurse Practitioner Family
DX: N64.89 Other specified disorders of breast (principal); L29.8 Other pruritus; L20.9 Atopic dermatitis, unspecified
CPT/HCPCS: 77066; G0279

== ENCOUNTER → 2023-05-01 14:14 | Outpatient (CLI) | payer OTHER, SELFPAY ==
--- NOTE | 2023-05-01 | DI.MG.S_ITS ---
BILATERAL DIGITAL SCREENING MAMMOGRAM 3D/2D WITH CAD: 05/01/2023 CLINICAL: Routine screening. Family history of breast cancer. Comparison is made to exams dated: 04/21/2022 mammogram, 06/01/2021 mammogram, and 04/13/2020 mammogram - [facility]. Both breasts are extremely dense, which lowers the sensitivity of mammography (category d />75% glandular tissue). Current study was also evaluated with a Computer Aided Detection (CAD) system. No significant masses, calcifications, or other findings are seen in either breast. There has been no significant interval change. IMPRESSION: NEGATIVE There is no mammographic evidence of malignancy. A 1 year screening mammogram is recommended. Based on Tyrer-Cuzick model (a risk assessment model), the patient's lifetime risk is 28.2% and her 10 year risk is 6.5%. If a patient has an elevated risk, a more comprehensive evaluation should be considered and/or a referral to a genetic counselor. The [place] [employer], [place] [employer], and NCCN Guidelines advise the consideration of Breast MRI as an adjunct to screening mammography in patients whose Lifetime risk to develop breast cancer is 20% or higher. This exam was interpreted at Station ID: [id number]. NOTE: For mammograms, a report in lay terms will be sent to the patient. Approximately 15% of breast malignancies will not be visualized mammographically. In the management of a palpable breast mass, a negative mammogram must not discourage biopsy of a clinically suspicious lesion. Electronically Signed By: Thais Magaña M.D., PH.D henry/lauren:05/02/2023 00:42:28 letter sent: Normal Exam ACR BI-RADS Category 1: Negative [id number]
== END ==
PROVIDERS: Family Provider Family Medicine; PCP Family Medicine; Referring Provider Family Medicine; Visit Provider Family Medicine
DX: Z12.31 Encounter for screening mammogram for malignant neoplasm of breast (principal); Z80.3 Family history of malignant neoplasm of breast; R92.343 Mammographic extreme density, bilateral breasts
CPT/HCPCS: 77063; 77067

== ENCOUNTER → 2024-01-12 08:07 | Outpatient (CLI) | payer OTHER, SELFPAY ==
[2024-01-12 08:59] LABS: BUN Creatinine Ratio 22.4 (6-22); Blood Urea Nitrogen 17 mg/dL (7-17); Calcium 8.8 mg/dL (8.4-10.2); Carbon Dioxide 24 mmol/L (22-32); Chloride 107 mmol/L (98-107); Cholesterol 157 mg/dL (140-199); Estimated Glomerular Filt Rate > 60 mL/min (>60); Glucose 97 mg/dL (70-100); HDL Cholesterol 56 mg/dL (40-60); HEMOLYSIS < 15 (0-50); LDL Cholesterol Calculated 86 mg/dL (<100); Potassium 4.5 mmol/L (3.4-5.1); Sodium 136 mmol/L (137-145); Triglycerides 77 mg/dL (35-150)
== END ==
PROVIDERS: Family Provider Family Medicine; PCP Family Medicine; Referring Provider Internal Medicine Cardiovascular Disease; Visit Provider Internal Medicine Cardiovascular Disease
DX: I42.8 Other cardiomyopathies (principal)
CPT/HCPCS: 80048; 80061

== ENCOUNTER → 2024-05-22 12:58 | Outpatient (CLI) | payer OTHER, SELFPAY ==
--- NOTE | 2024-05-22 13:00 | DI.MG.S_ITS ---
BILATERAL DIGITAL SCREENING MAMMOGRAM 3D/2D WITH CAD: 05/22/2024 CLINICAL: Routine screening. Family history of breast cancer. Comparison is made to exams dated: 05/01/2023 mammogram, 04/21/2022 mammogram, 06/01/2021 mammogram, and 04/13/2020 mammogram - . The breasts are extremely dense, which lowers the sensitivity of mammography (category d />75% glandular tissue). Current study was also evaluated with a Computer Aided Detection (CAD) system. No significant masses, calcifications, or other findings are seen in either breast. There has been no significant interval change. IMPRESSION: NEGATIVE There is no mammographic evidence of malignancy. A 1 year screening mammogram is recommended. Based on Tyrer-Cuzick model (a risk assessment model), the patient's lifetime risk is 28.3% and her 10 year risk is 6.9%. If a patient has an elevated risk, a more comprehensive evaluation should be considered and/or a referral to a genetic counselor. The [place] [employer], [employer], and NCCN Guidelines advise the consideration of Breast MRI as an adjunct to screening mammography in patients whose Lifetime risk to develop breast cancer is 20% or higher. This exam was interpreted at Station ID: [id number]. NOTE: For mammograms, a report in lay terms will be sent to the patient. Approximately 15% of breast malignancies will not be visualized mammographically. In the management of a palpable breast mass, a negative mammogram must not discourage biopsy of a clinically suspicious lesion. Electronically Signed By: Angel shaver/lauren:05/22/2024 18:37:06 letter sent: Normal Exam ACR BI-RADS Category 1: Negative
== END ==
PROVIDERS: Family Provider Family Medicine; PCP Family Medicine; Referring Provider Family Medicine; Visit Provider Family Medicine
DX: Z12.31 Encounter for screening mammogram for malignant neoplasm of breast (principal); Z80.3 Family history of malignant neoplasm of breast; R92.343 Mammographic extreme density, bilateral breasts
CPT/HCPCS: 77063; 77067